=== PATIENT | male | born 1955 | race African-American/Black ===

== ENCOUNTER 2020-12-31 14:33 | Inpatient (IN) | payer OTHER ==
[2020-12-31 16:39] LABS: #Eosinphils 0.2 10x3/uL (0.0-0.5); #Monocytes 0.9 10x3/uL (0.0-1.1); #Neutrophils 6.5 10x3/uL (1.5-8.4); %Basophils 0.3 % (0.0-2.0); %Eosinophils 1.7 % (0.0-6.0); %Lymphocytes 10.7 % (18.0-47.0); %Monocytes 10.7 % (0.0-10.0); %Neutrophils 75.8 % (40.0-75.0); Hemoglobin 12.6 g/dL (13.5-17.5); Mean Corpuscular HGB CONC 31.3 g/dL (32.0-36.0); Mean Corpuscular Volume 79.8 fl (81.2-95.1); Mean Platelet Volume 10.5 fl (7.4-10.4); Platelet Count 182 10x3/uL (150-450); RBC Distribution Width 19.2 % (11.5-14.5); Red Blood Cell (RBC) Count 5.05 10x6/uL (4.32-5.72); White Blood Cell (WBC) Count 8.6 10x3/uL (3.5-10.5)
[2020-12-31 16:46] LABS: ALT (SGPT) 12 U/L (8-55); AST (SGOT) 20 U/L (5-34); Albumin 2.8 g/dL (3.4-4.8); Alkaline Phosphatase 79 U/L (40-110); Anion Gap 14 mmol/L (10-20); BUN (Urea Nitrogen) 32 mg/dL (8.4-25.7); Bilirubin, Total 2.9 mg/dL (0.2-1.2); CK (CPK) 55 U/L (30-200); Calc. Creatinine Clearance 0 mL/min (70-130); Calcium 8.7 mg/dL (7.8-10.44); Carbon Dioxide 21 mmol/L (23-31); Chloride 107 mmol/L (98-107); Globulin 3.4 g/dL (2.4-3.5); Glucose 110 mg/dL (80-115); Potassium 4.3 mmol/L (3.5-5.1); Protein, Total 6.2 g/dL (5.8-8.1); Sodium 138 mmol/L (136-145)
[2020-12-31 17:09] LABS: CKMB 2.2 ng/mL (0-6.6)
[2020-12-31 17:47] LABS: Bilirubin 3+ (Negative); Blood, Urine 10 (Negative); Clarity Clear (Clear); Glucose, Urine (Dipstick) Normal (Negative); Ketone, Urine 5 mg/dL (Negative); Leukocyte 25 (Negative); Nitrite Positive (Negative); Protein, Urine (Dipstick) 100 mg/dl (Neg-Trace); Specific Gravity, Urine 1.025 (1.002-1.036); Urobilinogen 12 mg/dL (Less than 2)
[2020-12-31 18:13] LABS: Bacteria/HPF 2+ HPF (None Seen); Mucous/LPF 4+ LPF (<2+); RBC/HPF 0-3 HPF (0-3); Squamous Epithelial 0-3 HPF (0-3)
[2020-12-31 18:14] LABS: Fatty Cast 0-3 LPF (None Seen); White Blood Cell Cast 0-3 LPF (None Seen)
[2020-12-31] MEDS ORDERED: cefTRIAXone\\ROCEPHIN 1 GM VIAL ONE (18:26)
[2020-12-31] MEDS ORDERED: Furosemide 40 MG/4 ML VIAL ONE (19:04)
[2020-12-31 19:05] LABS: Troponin I 0.067 ng/mL (< 0.028)
[2020-12-31] MEDS ORDERED: Guaifenesin DM 100-10/5 ML UDCUP PO PRN (20:10)
[2020-12-31] MEDS ORDERED: Ondansetron PF 4 MG/2 ML Vial IVP PRN (20:10)
[2020-12-31] MEDS ORDERED: Acetaminophen 325 MG TAB PO PRN (20:10)
[2020-12-31] MEDS ORDERED: Senokot S 8.6-50 MG TAB PO PRN (20:10)
[2020-12-31] MEDS ORDERED: Calcium Carbonate 500 MG ChewTAB PO PRN (20:10)
[2020-12-31 23:20] VITALS: BMI 19.5
[2020-12-31] MEDS ORDERED: Nitroglycerin 2% Ointment 1 INCH/1 GM Packet TOP SCH (23:30)
[2020-12-31] MEDS ORDERED: Famotidine 20 MG TAB PO SCH (23:45)
[2020-12-31] MEDS ORDERED: Metoprolol Tartrate 25 MG TAB PO SCH (23:45)
[2020-12-31] MEDS ORDERED: Tamsulosin HCl 0.4 MG CAP PO SCH (23:45)
[2021-01-01 04:22] LABS: Anion Gap 14 mmol/L (10-20); BUN (Urea Nitrogen) 29 mg/dL (8.4-25.7); Calc. Creatinine Clearance 74 mL/min (70-130); Calcium 8.6 mg/dL (7.8-10.44); Carbon Dioxide 23 mmol/L (23-31); Chloride 105 mmol/L (98-107); Cholesterol 99 mg/dl (< 200 Desired); Glucose 97 mg/dL (80-115); HDL Cholesterol 20 mg/dL (>60 Neg Risk); Iron 32 ug/dL (65-175); Iron Binding Capacity, Total 248 mcg/dL (261-462); LDL Cholesterol, Calculated 62 mg/dL; Magnesium 1.8 mg/dL (1.6-2.6); Potassium 3.6 mmol/L (3.5-5.1); Sodium 138 mmol/L (136-145); Triglycerides 83 mg/dL (Less than 150)
[2021-01-01 04:39] LABS: Ferritin 125.15 ng/mL (22-322); Thyroid Stimulating Hormone 2.9701 uIU/mL (0.35-4.94)
[2021-01-01 04:46] LABS: #Eosinphils 0.3 10x3/uL (0.0-0.5); #Monocytes 1.3 10x3/uL (0.0-1.1); #Neutrophils 7.9 10x3/uL (1.5-8.4); %Basophils 0.4 % (0.0-2.0); %Eosinophils 2.5 % (0.0-6.0); %Lymphocytes 9.6 % (18.0-47.0); %Monocytes 11.9 % (0.0-10.0); CKMB 1.8 ng/mL (0-6.6); Hemoglobin 13.2 g/dL (13.5-17.5); Mean Corpuscular HGB CONC 31.8 g/dL (32.0-36.0); Mean Corpuscular Hemoglobin 25.4 pg (27.0-33.0); Mean Corpuscular Volume 79.8 fl (81.2-95.1); Platelet Count 172 10x3/uL (150-450); RBC Distribution Width 18.7 % (11.5-14.5); White Blood Cell (WBC) Count 10.5 10x3/uL (3.5-10.5)
[2021-01-01] MEDS: Furosemide 40 MG/4 ML VIAL SLOW IVP SCH ×2 (05:29→14:57)
[2021-01-01] MEDS: Metoprolol Tartrate 25 MG TAB PO SCH ×2 (09:12→20:15)
[2021-01-01] MEDS: Enoxaparin Sodium 40 MG/0.4 ML SYRINGE SC SCH (09:12)
[2021-01-01] MEDS: Potassium Chloride 20 MEQ TAB PO SCH (09:12)
[2021-01-01] MEDS: cefTRIAXone\\ROCEPHIN 1 GM in Sodium Chloride 0.9% 100 ML IVPB SCH (09:12)
[2021-01-01] MEDS: Famotidine 20 MG TAB PO SCH ×2 (09:12→20:15)
[2021-01-01] MEDS: Aspirin 81 mg Enteric Coated Tablet PO SCH (09:13)
[2021-01-01] MEDS: Budesonide 0.5 MG/2 ML NEB NEB SCH ×2 (10:16→20:26)
[2021-01-01 15:40] LABS: SARS-CoV-2 PCR by NAA Not Detected (NotDetected)
[2021-01-01] MEDS ORDERED: Tamsulosin HCl 0.4 MG CAP PO SCH (21:00)
[2021-01-02 05:17] LABS: ALT (SGPT) 12 U/L (8-55); AST (SGOT) 22 U/L (5-34); Albumin 2.5 g/dL (3.4-4.8); Alkaline Phosphatase 78 U/L (40-110); Anion Gap 12 mmol/L (10-20); BUN (Urea Nitrogen) 22 mg/dL (8.4-25.7); Bilirubin, Total 2.6 mg/dL (0.2-1.2); Calc. Creatinine Clearance 78 mL/min (70-130); Calcium 8.1 mg/dL (7.8-10.44); Carbon Dioxide 25 mmol/L (23-31); Chloride 102 mmol/L (98-107); Globulin 3.2 g/dL (2.4-3.5); Glucose 84 mg/dL (80-115); Potassium 3.4 mmol/L (3.5-5.1); Protein, Total 5.7 g/dL (5.8-8.1); Sodium 136 mmol/L (136-145)
[2021-01-02] MEDS: Furosemide 40 MG/4 ML VIAL SLOW IVP SCH ×2 (05:37→13:46)
[2021-01-02 05:38] LABS: #Eosinphils 0.2 10x3/uL (0.0-0.5); #Monocytes 0.8 10x3/uL (0.0-1.1); #Neutrophils 5.7 10x3/uL (1.5-8.4); %Basophils 0.4 % (0.0-2.0); %Eosinophils 2.7 % (0.0-6.0); %Lymphocytes 10.1 % (18.0-47.0); %Monocytes 10.5 % (0.0-10.0); %Neutrophils 75.9 % (40.0-75.0); Hemoglobin 12.4 g/dL (13.5-17.5); Mean Corpuscular HGB CONC 32.2 g/dL (32.0-36.0); Mean Corpuscular Hemoglobin 25.5 pg (27.0-33.0); Mean Corpuscular Volume 79.1 fl (81.2-95.1); Mean Platelet Volume 10.7 fl (7.4-10.4); Platelet Count 170 10x3/uL (150-450); RBC Distribution Width 18.3 % (11.5-14.5); Red Blood Cell (RBC) Count 4.87 10x6/uL (4.32-5.72); White Blood Cell (WBC) Count 7.5 10x3/uL (3.5-10.5)
[2021-01-02] MEDS: Budesonide 0.5 MG/2 ML NEB NEB SCH (08:13)
[2021-01-02] MEDS: Enoxaparin Sodium 40 MG/0.4 ML SYRINGE SC SCH (09:28)
[2021-01-02] MEDS: Famotidine 20 MG TAB PO SCH (09:29)
[2021-01-02] MEDS: Aspirin 81 mg Enteric Coated Tablet PO SCH (09:29)
[2021-01-02] MEDS: cefTRIAXone\\ROCEPHIN 1 GM in Sodium Chloride 0.9% 100 ML IVPB SCH (09:29)
[2021-01-02] MEDS: Potassium Chloride 20 MEQ TAB PO SCH (09:29)
[2021-01-02] MEDS: Metoprolol Tartrate 25 MG TAB PO SCH (09:35)
[2021-01-02 12:48] VITALS: BP 129/80; TEMP 98.3
== END 2021-01-02 16:56 | disposition home or self-care (01) | DRG 291 ==
LOC: CSHERS 14:33 → CSHTELE 23:00
PROVIDERS: ADMIT Student in an Organized Health Care Education/Training Program; ATTEND Internal Medicine
DX: I11.0 Hypertensive heart disease with heart failure (principal); J96.01 Acute respiratory failure with hypoxia; I50.21 Acute systolic (congestive) heart failure; N39.0 Urinary tract infection, site not specified; N40.0 Benign prostatic hyperplasia without lower urinary tract symptoms; F20.9 Schizophrenia, unspecified; F41.9 Anxiety disorder, unspecified; J44.9 Chronic obstructive pulmonary disease, unspecified; E78.5 Hyperlipidemia, unspecified; D50.9 Iron deficiency anemia, unspecified; Z87.891 Personal history of nicotine dependence; M19.90 Unspecified osteoarthritis, unspecified site; Z20.822 Contact with and (suspected) exposure to COVID-19
CPT/HCPCS: 36415; 70450; 71045; 80048; 80053; 80061; 81003; 81015; 82550; 82553; 82728; 83540; 83550; 83735; 83880; 84443; 84484; 85025; 87635; 93005; 93306; 93970; 94640; 94760; 96374; 96375; J0696; J1650; J1940; J3490; J7626; U0003; U0005

== ENCOUNTER 2021-08-23 21:18 | Inpatient (IN) | payer MEDICARE, MEDICAID ==
[2021-08-23 22:18] LABS: #Eosinphils 0.1 10x3/uL (0.0-0.5); #Monocytes 0.7 10x3/uL (0.0-1.1); #Neutrophils 5.2 10x3/uL (1.5-8.4); %Basophils 0.3 % (0.0-2.0); %Eosinophils 1.6 % (0.0-6.0); %Lymphocytes 10.8 % (18.0-47.0); %Monocytes 10.5 % (0.0-10.0); %Neutrophils 76.2 % (40.0-75.0); Hemoglobin 11.9 g/dL (13.5-17.5); Mean Corpuscular HGB CONC 31.3 g/dL (32.0-36.0); Mean Corpuscular Hemoglobin 25.3 pg (27.0-33.0); Mean Corpuscular Volume 80.9 fl (81.2-95.1); Mean Platelet Volume 10.5 fl (7.4-10.4); Platelet Count 185 10x3/uL (150-450); RBC Distribution Width 19.6 % (11.5-14.5); White Blood Cell (WBC) Count 6.8 10x3/uL (3.5-10.5)
[2021-08-23 22:43] LABS: ALT (SGPT) 6 U/L (8-55); AST (SGOT) 19 U/L (5-34); Albumin 2.9 g/dL (3.4-4.8); Alkaline Phosphatase 83 U/L (40-110); Anion Gap 10 mmol/L (10-20); BUN (Urea Nitrogen) 20 mg/dL (8.4-25.7); Calc. Creatinine Clearance 0 mL/min (70-130); Calcium 8.3 mg/dL (7.8-10.44); Carbon Dioxide 28 mmol/L (23-31); Chloride 105 mmol/L (98-107); Globulin 3.5 g/dL (2.4-3.5); Glucose 125 mg/dL (80-115); Potassium 3.2 mmol/L (3.5-5.1); Protein, Total 6.4 g/dL (5.8-8.1); Sodium 140 mmol/L (136-145)
[2021-08-24] MEDS ORDERED: Acetaminophen 325 MG TAB PO PRN (00:48)
[2021-08-24] MEDS ORDERED: Senokot S 8.6-50 MG TAB PO PRN (00:48)
[2021-08-24] MEDS ORDERED: Guaifenesin DM 100-10/5 ML UDCUP PO PRN (00:48)
[2021-08-24] MEDS ORDERED: Calcium Carbonate 500 MG ChewTAB PO PRN (00:48)
[2021-08-24] MEDS ORDERED: Furosemide 40 MG/4 ML VIAL SLOW IVP SCH (01:00)
[2021-08-24] MEDS ORDERED: cefTRIAXone\\ROCEPHIN 1 GM in Sodium Chloride 0.9% 100 ML IVPB SCH (01:00)
[2021-08-24] MEDS ORDERED: Potassium Chloride 20 MEQ TAB PO SCH (01:00)
[2021-08-24] MEDS ORDERED: cefTRIAXone\\ROCEPHIN 1 GM VIAL ONE (01:17)
[2021-08-24] MEDS ORDERED: Furosemide 40 MG/4 ML VIAL ONE (01:17)
[2021-08-24] MEDS ORDERED: Potassium Chloride 20 MEQ TAB ONE (01:17)
[2021-08-24 03:18] VITALS: BMI 25.1
[2021-08-24 04:15] LABS: Bilirubin Neg (Negative); Blood, Urine Negative (Negative); Clarity Clear (Clear); Glucose, Urine (Dipstick) Normal (Negative); Ketone, Urine Negative (Negative); Leukocyte Negative (Negative); Nitrite Negative (Negative); Protein, Urine (Dipstick) Negative (Neg-Trace); pH, Urine 6.5 (5.0-9.0)
[2021-08-24 04:18] LABS: Anion Gap 14 mmol/L (10-20); BUN (Urea Nitrogen) 19 mg/dL (8.4-25.7); Calc. Creatinine Clearance 87 mL/min (70-130); Calcium 8.3 mg/dL (7.8-10.44); Carbon Dioxide 26 mmol/L (23-31); Chloride 106 mmol/L (98-107); Cholesterol 95 mg/dl (< 200 Desired); Glucose 117 mg/dL (80-115); HDL Cholesterol 19 mg/dL (>60 Neg Risk); LDL Cholesterol, Calculated 65 mg/dL; Potassium 4.5 mmol/L (3.5-5.1); Sodium 141 mmol/L (136-145); Triglycerides 53 mg/dL (Less than 150)
[2021-08-24 04:20] LABS: Magnesium 1.9 mg/dL (1.6-2.6)
[2021-08-24 04:29] LABS: Bacteria/HPF Rare-Few HPF (None Seen); RBC/HPF 0-3 HPF (0-3); Squamous Epithelial 0-3 HPF (0-3); WBC/HPF 0-3 HPF (0-3)
[2021-08-24] MEDS: Budesonide 0.5 MG/2 ML NEB NEB SCH ×2 (07:00→18:45)
[2021-08-24] MEDS: Aspirin 81 mg Enteric Coated Tablet PO SCH (10:42)
[2021-08-24] MEDS: Famotidine 20 MG TAB PO SCH ×2 (10:43→21:31)
[2021-08-24] MEDS: Furosemide 40 MG TAB PO SCH (10:43)
[2021-08-24] MEDS: Enoxaparin Sodium 40 MG/0.4 ML SYRINGE SC SCH ×2 (10:43→10:47)
[2021-08-24 19:49] LABS: SARS-CoV-2 PCR by NAA Not Detected (NotDetected)
[2021-08-24] MEDS ORDERED: Metoprolol Tartrate 25 MG TAB PO SCH (21:00)
[2021-08-24] MEDS: Rosuvastatin 20 MG TAB PO SCH (21:31)
[2021-08-24] MEDS: Metoprolol Tartrate 50 MG TAB PO SCH (21:31)
[2021-08-25] MEDS ORDERED: Haloperidol Lactate 5 MG/ML VIAL IM SCH (02:15)
[2021-08-25 07:25] LABS: Anion Gap 14 mmol/L (10-20); BUN (Urea Nitrogen) 18 mg/dL (8.4-25.7); Calc. Creatinine Clearance 92 mL/min (70-130); Calcium 8.6 mg/dL (7.8-10.44); Carbon Dioxide 26 mmol/L (23-31); Chloride 107 mmol/L (98-107); Glucose 90 mg/dL (80-115); Magnesium 1.9 mg/dL (1.6-2.6); Potassium 3.6 mmol/L (3.5-5.1); Sodium 143 mmol/L (136-145)
[2021-08-25] MEDS: Budesonide 0.5 MG/2 ML NEB NEB SCH ×2 (07:27→18:09)
[2021-08-25] MEDS ORDERED: FLU VACC QS2021-22(65YR UP)/PF 240 MCG/0.7 ML SYRINGE IM ONE (09:00)
[2021-08-25] MEDS: Metoprolol Tartrate 50 MG TAB PO SCH ×2 (09:15→20:42)
[2021-08-25] MEDS: Enoxaparin Sodium 40 MG/0.4 ML SYRINGE SC SCH (09:15)
[2021-08-25] MEDS: Famotidine 20 MG TAB PO SCH ×2 (09:15→20:42)
[2021-08-25] MEDS: Aspirin 81 mg Enteric Coated Tablet PO SCH (09:15)
[2021-08-25] MEDS: Furosemide 40 MG TAB PO SCH (09:15)
[2021-08-25] MEDS: Rosuvastatin 20 MG TAB PO SCH (20:42)
[2021-08-25 21:49] VITALS: BP 146/101; TEMP 97.2
== END 2021-08-25 22:50 | DRG 291 ==
LOC: CSHERS 21:18 → INTOOBSV 08-24 00:47 → CSHERHOLD 08-24 00:47 → UNDOADMIN 08-24 01:07 → CSHERHOLD 08-24 01:07 → CSHTELE 08-24 08:27 → CSHERHOLD 08-24 08:27 → OBSVTOIN 08-24 21:10
PROVIDERS: ADMIT Student in an Organized Health Care Education/Training Program; ATTEND Internal Medicine
DX: I11.0 Hypertensive heart disease with heart failure (principal); I50.21 Acute systolic (congestive) heart failure; N39.0 Urinary tract infection, site not specified; F20.9 Schizophrenia, unspecified; D50.9 Iron deficiency anemia, unspecified; Z79.899 Other long term (current) drug therapy; F41.9 Anxiety disorder, unspecified; J44.9 Chronic obstructive pulmonary disease, unspecified; Z20.822 Contact with and (suspected) exposure to COVID-19; M19.90 Unspecified osteoarthritis, unspecified site; N40.0 Benign prostatic hyperplasia without lower urinary tract symptoms; Z87.891 Personal history of nicotine dependence; E87.6 Hypokalemia; E78.5 Hyperlipidemia, unspecified
CPT/HCPCS: 0042T; 36415; 36416; 70450; 70496; 70498; 70551; 71045; 80048; 80053; 80061; 81001; 83735; 83880; 84443; 84484; 85025; 87086; 93005; 93306; 94760; 96374; 96375; G0378; J0696; J1630; J1650; J1940; J3490; U0003; U0005

== ENCOUNTER 2021-09-07 07:26 | Inpatient (IN) | payer MEDICARE, MEDICAID ==
[2021-09-07] MEDS ORDERED: Norepinephrine 8 MG/0.9% NS 250 ML ONE (07:40)
[2021-09-07 08:10] LABS: #Basophils 0.1 10x3/uL (0.0-0.2); #Eosinphils 0.1 10x3/uL (0.0-0.5); #Monocytes 0.4 10x3/uL (0.0-1.1); #Neutrophils 7.4 10x3/uL (1.5-8.4); %Basophils 0.6 % (0.0-2.0); %Eosinophils 0.8 % (0.0-6.0); %Lymphocytes 21.7 % (18.0-47.0); %Monocytes 3.5 % (0.0-10.0); Hemoglobin 12.4 g/dL (13.5-17.5); Mean Corpuscular HGB CONC 32.1 g/dL (32.0-36.0); Mean Corpuscular Hemoglobin 25.5 pg (27.0-33.0); Mean Corpuscular Volume 79.4 fl (81.2-95.1); RBC Distribution Width 20.8 % (11.5-14.5); Red Blood Cell (RBC) Count 4.86 10x6/uL (4.32-5.72); White Blood Cell (WBC) Count 10.9 10x3/uL (3.5-10.5)
[2021-09-07 08:12] LABS: Platelet Count 148 10x3/uL (150-450)
[2021-09-07 08:38] LABS: Bilirubin Neg (Negative); Blood, Urine 250 (Negative); Clarity Slightly Cloudy (Clear); Glucose, Urine (Dipstick) Normal (Negative); Ketone, Urine Negative (Negative); Leukocyte Negative (Negative); Nitrite Negative (Negative); Protein, Urine (Dipstick) 100 mg/dl (Neg-Trace)
[2021-09-07 08:43] LABS: ALT (SGPT) 34 U/L (8-55); AST (SGOT) 127 U/L (5-34); Albumin 2.3 g/dL (3.4-4.8); Alkaline Phosphatase 148 U/L (40-110); Anion Gap 17 mmol/L (10-20); BUN (Urea Nitrogen) 25 mg/dL (8.4-25.7); Bilirubin, Total 6.8 mg/dL (0.2-1.2); Calc. Creatinine Clearance 0 mL/min (70-130); Carbon Dioxide 29 mmol/L (23-31); Chloride 104 mmol/L (98-107); Globulin 2.9 g/dL (2.4-3.5); Protein, Total 5.2 g/dL (5.8-8.1); Sodium 147 mmol/L (136-145)
[2021-09-07 08:45] LABS: Actual Bicarbonate (HCO3a) 30.3 mEq/L (22-28); Base Excess (BEa) 2.1 mEq/L (-2.0 to +3.0); CO2 Tension 64.2 mmHg (35.0-45.0); Calcium, Ionized (arterial) 1.13 mmol/L (1.12-1.30); Carboxyhemoglobin (COHb) 2.7 gm% (0.0-3.0); Hemoglobin (Hb) 13.8 g/dL (14.0-18.0); O2 Tension (PaO2), arterial 65.1 mmHg (> 80.0); Potassium - ABG Lab 2.1 mmol/L (3.70-5.30); Puncture Site LBA; pH, Arterial 7.29 (7.35-7.45)
[2021-09-07 08:47] LABS: Bacteria/HPF Rare-Few HPF (None Seen); Squamous Epithelial 0-3 HPF (0-3)
[2021-09-07 08:49] LABS: SARS-CoV-2 NAA Rapid Test Not Detected (NotDetected)
[2021-09-07] MEDS ORDERED: Dexamethasone 10 MG/ML VIAL ONE (09:04)
[2021-09-07] MEDS ORDERED: Cefepime 2 GM VIAL ONE (09:05)
[2021-09-07 09:11] LABS: Glucose 14 mg/dL (80-115); Potassium 2.5 mmol/L (3.5-5.1)
[2021-09-07] MEDS ORDERED: Acetaminophen 325 MG Suppository PR PRN (09:37)
[2021-09-07] MEDS ORDERED: Electrolyte Replacement Protocol 1 EACH IVPB ONE (09:37)
[2021-09-07] MEDS ORDERED: Ventilator Sedation Protocol 1 EACH FS SCH (09:45)
[2021-09-07 09:56] LABS: Anion Gap 11 mmol/L (10-20); BUN (Urea Nitrogen) 24 mg/dL (8.4-25.7); Calc. Creatinine Clearance 51 mL/min (70-130); Carbon Dioxide 31 mmol/L (23-31); Chloride 105 mmol/L (98-107); Glucose 90 mg/dL (80-115); Sodium 144 mmol/L (136-145)
[2021-09-07] MEDS ORDERED: DISCONTINUE PREVIOUS NARCOTIC PAIN MEDICATIONS AND BENZODIAZEPINES FS SCH (10:00)
[2021-09-07] MEDS ORDERED: Propofol BOLUS 1,000 MG/100 ML VIAL IV PRN (10:00)
[2021-09-07] MEDS ORDERED: fentaNYL Citrate-0.9 % NaCl/PF 100 ML IVPB SCH (10:00)
[2021-09-07] MEDS ORDERED: Lorazepam 2 MG/ML VIAL SLOW IVP PRN (10:00)
[2021-09-07] MEDS ORDERED: Morphine 2 MG/ML VIAL SLOW IVP PRN (10:00)
[2021-09-07] MEDS ORDERED: Fentanyl BOLUS 250 ML IVPB PRN (10:00)
[2021-09-07 10:07] LABS: Potassium 2.9 mmol/L (3.5-5.1)
[2021-09-07 10:48] LABS: SARS-CoV-2 NAA Rapid Test Not Detected (NotDetected)
[2021-09-07] MEDS ORDERED: Vancomycin HCl 1 GM in Sodium Chloride 0.9% 250 ML 250 ML IVPB SCH (11:00)
[2021-09-07] MEDS ORDERED: Dextrose 5 %-0.45 % NaCl 1,000 ML IV SCH (12:15)
[2021-09-07] MEDS: Norepinephrine 8 MG/0.9% NS 250 ML IVPB PRN ×3 (12:30→23:34)
[2021-09-07 12:35] LABS: Lactic Acid 3.2 mmol/L (0.5-2.2)
[2021-09-07] MEDS: Potassium Chloride 40 MEQ in Premix Bag 1 BAG IVPB SCH ×2 (12:50→17:03)
[2021-09-07] MEDS ORDERED: Dextrose 50% Abboject 50 ML SYRINGE ONE (14:08)
[2021-09-07] MEDS ORDERED: Dextrose 50% Abboject 50 ML SYRINGE SLOW IVP PRN ×2 (14:23→14:24)
[2021-09-07] MEDS ORDERED: Dextrose 10% in Water 1,000 ML IV SCH (14:30)
[2021-09-07] MEDS ORDERED: FLU VACC QS2021-22(65YR UP)/PF 240 MCG/0.7 ML SYRINGE IM ONE (15:15)
[2021-09-07] MEDS: Propofol 1,000 MG/100 ML VIAL IV PRN (15:42)
[2021-09-07] MEDS ORDERED: Vancomycin 1 GM in Premix Bag 1 BAG IVPB SCH (21:00)
[2021-09-07] MEDS ORDERED: Famotidine/PF 20 mg/2ml Vial SLOW IVP SCH (21:00)
[2021-09-07 21:25] LABS: Anion Gap 14 mmol/L (10-20); BUN (Urea Nitrogen) 27 mg/dL (8.4-25.7); Calc. Creatinine Clearance 39 mL/min (70-130); Calcium 7.9 mg/dL (7.8-10.44); Carbon Dioxide 27 mmol/L (23-31); Chloride 105 mmol/L (98-107); Glucose 144 mg/dL (80-115); Magnesium 1.6 mg/dL (1.6-2.6); Potassium 4.1 mmol/L (3.5-5.1); Sodium 142 mmol/L (136-145)
[2021-09-07] MEDS: Cefepime 2 GM in Sodium Chloride 0.9% 100 ML IVPB SCH (21:57)
[2021-09-08] MEDS ORDERED: Pantoprazole 40 MG VIAL IVP SCH (02:30)
[2021-09-08] MEDS: Dextrose 10% in Water 1,000 ML IV SCH (02:51)
[2021-09-08 04:42] LABS: ALT (SGPT) 89 U/L (8-55); AST (SGOT) 353 U/L (5-34); Albumin 2.3 g/dL (3.4-4.8); Alkaline Phosphatase 142 U/L (40-110); Anion Gap 14 mmol/L (10-20); BUN (Urea Nitrogen) 30 mg/dL (8.4-25.7); Bilirubin, Total 9.1 mg/dL (0.2-1.2); Calc. Creatinine Clearance 34 mL/min (70-130); Calcium 7.7 mg/dL (7.8-10.44); Carbon Dioxide 27 mmol/L (23-31); Chloride 106 mmol/L (98-107); Glucose 214 mg/dL (80-115); Magnesium 1.6 mg/dL (1.6-2.6); Potassium 3.5 mmol/L (3.5-5.1); Protein, Total 5.3 g/dL (5.8-8.1); Sodium 143 mmol/L (136-145)
[2021-09-08 04:43] LABS: #Neutrophils 17.4 10x3/uL (1.5-8.4); %Basophils 0.1 % (0.0-2.0); %Monocytes 5.3 % (0.0-10.0); %Neutrophils 90.4 % (40.0-75.0); Hemoglobin 12.2 g/dL (13.5-17.5); Mean Corpuscular HGB CONC 32.9 g/dL (32.0-36.0); Platelet Count 170 10x3/uL (150-450); RBC Distribution Width 20.2 % (11.5-14.5); Red Blood Cell (RBC) Count 4.88 10x6/uL (4.32-5.72); White Blood Cell (WBC) Count 19.3 10x3/uL (3.5-10.5)
[2021-09-08 05:13] LABS: Fibrinogen 109 mg/dL (220-504); INR-International Normal Ratio 3.2; PTT 47.2 sec (22.0-33.0); Prothrombin Time 33.6 sec (9.5-12.1)
[2021-09-08 05:14] LABS: D-Dimer Test Greater than 35.20 mg/L FEU (0.19-0.50)
[2021-09-08] MEDS: Vancomycin HCl 750 MG in Sodium Chloride 0.9% 250 ML 250 ML IVPB SCH ×2 (05:44→23:30)
[2021-09-08] MEDS: Propofol 1,000 MG/100 ML VIAL IV PRN (05:44)
[2021-09-08 06:12] LABS: Platelet Count 170 10x3/uL (150-450)
[2021-09-08] MEDS ORDERED: Magnesium 2 GM/50 ML 2 GM in Premix Bag 1 BAG IVPB SCH (06:30)
[2021-09-08] MEDS ORDERED: Potassium Chloride 20 MEQ TAB PO SCH (06:30)
[2021-09-08] MEDS: Norepinephrine 8 MG/0.9% NS 250 ML IVPB PRN ×3 (06:46→22:24)
[2021-09-08] MEDS ORDERED: Enoxaparin Sodium 40 MG/0.4 ML SYRINGE SC SCH (09:00)
[2021-09-08] MEDS: Pantoprazole 40 MG VIAL IVP SCH ×2 (09:30→21:53)
[2021-09-08] MEDS: Cefepime 2 GM in Sodium Chloride 0.9% 100 ML IVPB SCH ×2 (09:43→21:53)
[2021-09-08] MEDS ORDERED: Midazolam HCl 5 mg/5 ml Vial SLOW IVP PRN (10:03)
[2021-09-08] MEDS ORDERED: Vecuronium 10 MG VIAL IVP PRN (10:04)
[2021-09-08 20:42] LABS: Vancomycin, Trough 15.9 ug/mL
[2021-09-08 20:49] LABS: D-Dimer Test 33.34 mg/L FEU (0.19-0.50); INR-International Normal Ratio 1.8; PTT 40.7 sec (22.0-33.0); Prothrombin Time 19.3 sec (9.5-12.1)
[2021-09-08] MEDS: Midazolam HCl 5 mg/5 ml Vial SLOW IVP PRN (22:10)
[2021-09-08] MEDS ORDERED: Morphine 4 MG/ML VIAL SLOW IVP PRN (22:40)
[2021-09-09] MEDS: Dextrose 10% in Water 1,000 ML IV SCH (01:11)
[2021-09-09 03:47] LABS: Hemoglobin 9.9 g/dL (13.5-17.5); Mean Corpuscular HGB CONC 32.7 g/dL (32.0-36.0); Mean Corpuscular Hemoglobin 24.7 pg (27.0-33.0); Mean Corpuscular Volume 75.6 fl (81.2-95.1); Mean Platelet Volume 9.3 fl (7.4-10.4); Platelet Count 156 10x3/uL (150-450); RBC Distribution Width 19.6 % (11.5-14.5); Red Blood Cell (RBC) Count 4.01 10x6/uL (4.32-5.72); White Blood Cell (WBC) Count 23.1 10x3/uL (3.5-10.5)
[2021-09-09 04:31] LABS: ALT (SGPT) 155 U/L (8-55); AST (SGOT) 637 U/L (5-34); Albumin 2.2 g/dL (3.4-4.8); Alkaline Phosphatase 142 U/L (40-110); Anion Gap 16 mmol/L (10-20); BUN (Urea Nitrogen) 45 mg/dL (8.4-25.7); Bilirubin, Total 12.6 mg/dL (0.2-1.2); Calc. Creatinine Clearance 31 mL/min (70-130); Calcium 7.6 mg/dL (7.8-10.44); Carbon Dioxide 22 mmol/L (23-31); Chloride 107 mmol/L (98-107); Glucose 158 mg/dL (80-115); Protein, Total 5.2 g/dL (5.8-8.1); Sodium 141 mmol/L (136-145)
[2021-09-09 04:47] LABS: MDiff Complete? YES; Manual Diff?? YES
[2021-09-09 04:54] LABS: Band 25 % (5-11); Lymphocytes 2 % (21-51); Monocytes 5 % (0-10); Neutrophil 68 % (42-75); Nucleated RBC 2 % (0)
[2021-09-09 04:56] LABS: Platelet Morphology Comment Appears Adequate
[2021-09-09 04:57] LABS: Anisocytosis SLIGHT = 6-15 cells (100X) (0-5/hpf); Crenated RBC MODERATE= 6-15 cells (100X) (None Seen); Hypochromia MODERATE=16-30 cells (100X) (0-5/hpf); Microcytosis SLIGHT = 6-15 cells (100X) (0-5/hpf); Schistocytes SLIGHT = 2-5 cells (100X) (0-1/hpf); Target Cells MODERATE= 6-15 cells (100X) (0-1/hpf); Tear Drops SLIGHT = 2-5 cells (100X) (0-1/hpf)
[2021-09-09] MEDS: Cefepime 2 GM in Sodium Chloride 0.9% 100 ML IVPB SCH ×2 (08:02→20:43)
[2021-09-09] MEDS: Pantoprazole 40 MG VIAL IVP SCH ×2 (08:03→20:43)
[2021-09-09] MEDS: Norepinephrine 8 MG/0.9% NS 250 ML IVPB PRN ×2 (08:05→21:48)
[2021-09-09] MEDS: Vancomycin HCl 750 MG in Sodium Chloride 0.9% 250 ML 250 ML IVPB SCH (16:58)
[2021-09-09] MEDS: Midazolam HCl 5 mg/5 ml Vial SLOW IVP PRN ×2 (16:59→21:47)
[2021-09-09] MEDS: Albumin 25% 25 GM/100 ML BOT IVPB SCH (19:59)
[2021-09-10 02:14] LABS: Creatinine, Urine 41.61 mg/dL (63-166)
[2021-09-10] MEDS: Albumin 25% 25 GM/100 ML BOT IVPB SCH ×3 (02:24→15:28)
[2021-09-10 04:09] LABS: Anion Gap 17 mmol/L (10-20); BUN (Urea Nitrogen) 73 mg/dL (8.4-25.7); Calc. Creatinine Clearance 22 mL/min (70-130); Calcium 7.8 mg/dL (7.8-10.44); Carbon Dioxide 21 mmol/L (23-31); Chloride 108 mmol/L (98-107); Glucose 99 mg/dL (80-115); Magnesium 1.9 mg/dL (1.6-2.6); Potassium 4.1 mmol/L (3.5-5.1); Sodium 142 mmol/L (136-145)
[2021-09-10 05:10] LABS: Hemoglobin 6.9 g/dL (13.5-17.5); Mean Corpuscular HGB CONC 33.5 g/dL (32.0-36.0); Mean Corpuscular Hemoglobin 25.5 pg (27.0-33.0); Platelet Count 94 10x3/uL (150-450); RBC Distribution Width 19.6 % (11.5-14.5); Red Blood Cell (RBC) Count 2.71 10x6/uL (4.32-5.72); White Blood Cell (WBC) Count 17.1 10x3/uL (3.5-10.5)
[2021-09-10 05:50] LABS: MDiff Complete? YES; Manual Diff?? YES
[2021-09-10 05:53] LABS: Band 17 % (5-11); Lymphocytes 6 % (21-51); Monocytes 3 % (0-10); Neutrophil 74 % (42-75); Nucleated RBC 1 % (0); Platelet Morphology Comment Appears Decreased
[2021-09-10 05:54] LABS: Hypochromia MODERATE=16-30 cells (100X) (0-5/hpf)
[2021-09-10 05:55] LABS: Anisocytosis MODERATE=16-30 cells (100X) (0-5/hpf); Basophilic Stippling SLIGHT = 1-2 cells (100X) (None Seen); Burr Cells SLIGHT = 2-5 cells (100X) (0-1/hpf); Macrocytosis SLIGHT = 6-15 cells (100X) (0-5/hpf); Microcytosis SLIGHT = 6-15 cells (100X) (0-5/hpf); Target Cells SLIGHT = 2-5 cells (100X) (0-1/hpf)
[2021-09-10 05:56] LABS: Crenated RBC SLIGHT = 1-5 cells (100X) (None Seen)
[2021-09-10 05:58] VITALS: BMI 26.0
[2021-09-10 07:35] LABS: Phosphorus 3.1 mg/dL (2.3-4.7)
[2021-09-10 07:37] LABS: Iron 82 ug/dL (65-175); Iron Binding Capacity, Total 155 mcg/dL (261-462)
[2021-09-10] MEDS: Pantoprazole 40 MG VIAL IVP SCH ×2 (08:50→22:13)
[2021-09-10 10:21] LABS: Vancomycin, Trough 28.3 ug/mL
[2021-09-10] MEDS ORDERED: Vancomycin 1 GM in Premix Bag 1 BAG IVPB SCH (10:30)
[2021-09-10] MEDS ORDERED: Lorazepam 2 MG/ML VIAL SLOW IVP PRN ×2 (15:14→16:00)
[2021-09-10] MEDS ORDERED: Morphine 4 MG/ML VIAL SLOW IVP SCH (15:30)
[2021-09-10] MEDS ORDERED: Atropine Sulfate 1% Ophth Soln 5 ml Bottle PO PRN (15:53)
[2021-09-10] MEDS ORDERED: Cefepime 1 GM in Sodium Chloride 0.9% 100 ML IVPB SCH (21:00)
[2021-09-11] MEDS: Pantoprazole 40 MG VIAL IVP SCH (09:21)
[2021-09-11 09:48] LABS: Vancomycin, Random 26.5 ug/mL (See Comment)
[2021-09-11 13:08] VITALS: BP 76/46; TEMP 99.1
== END 2021-09-11 14:30 | disposition expired | DRG 314 ==
LOC: CSHERS 07:26 → CSHIMCU 09:31 → CSHTELE 09-10 21:53
PROVIDERS: ADMIT Hospitalist; ATTEND Hospitalist
PROC: 3E033XZ Introduction of Vasopressor into Peripheral Vein, Percutaneous Approach (ICD-10-PCS; principal; 2021-09-07)
PROC: 0DH67UZ Insertion of Feeding Device into Stomach, Via Natural or Artificial Opening (ICD-10-PCS; 2021-09-07)
PROC: 5A12012 Performance of Cardiac Output, Single, Manual (ICD-10-PCS; 2021-09-07)
PROC: 5A1945Z Respiratory Ventilation, 24-96 Consecutive Hours (ICD-10-PCS; 2021-09-07)
DX: I42.9 Cardiomyopathy, unspecified (principal); J18.9 Pneumonia, unspecified organism; I50.43 Acute on chronic combined systolic (congestive) and diastolic (congestive) heart failure; Z66 Do not resuscitate; Z51.5 Encounter for palliative care; J96.01 Acute respiratory failure with hypoxia; N17.0 Acute kidney failure with tubular necrosis; A41.9 Sepsis, unspecified organism; R65.21 Severe sepsis with septic shock; K72.00 Acute and subacute hepatic failure without coma; D65 Disseminated intravascular coagulation [defibrination syndrome]; E87.2 Acidosis; J44.0 Chronic obstructive pulmonary disease with (acute) lower respiratory infection; G93.1 Anoxic brain damage, not elsewhere classified; D68.9 Coagulation defect, unspecified; I13.0 Hypertensive heart and chronic kidney disease with heart failure and stage 1 through stage 4 chronic kidney disease, or unspecified chronic kidney disease; J95.811 Postprocedural pneumothorax; D62 Acute posthemorrhagic anemia; R57.0 Cardiogenic shock; F25.9 Schizoaffective disorder, unspecified; Z20.822 Contact with and (suspected) exposure to COVID-19; F31.9 Bipolar disorder, unspecified; R57.1 Hypovolemic shock; N40.0 Benign prostatic hyperplasia without lower urinary tract symptoms; D63.1 Anemia in chronic kidney disease; E11.22 Type 2 diabetes mellitus with diabetic chronic kidney disease; N18.9 Chronic kidney disease, unspecified; I46.2 Cardiac arrest due to underlying cardiac condition; R91.8 Other nonspecific abnormal finding of lung field; E16.2 Hypoglycemia, unspecified; E11.649 Type 2 diabetes mellitus with hypoglycemia without coma; E87.6 Hypokalemia; R74.01 Elevation of levels of liver transaminase levels; Z79.82 Long term (current) use of aspirin; Z79.899 Other long term (current) drug therapy
CPT/HCPCS: 0240U; 36415; 36416; 36430; 36600; 71045; 76705; 80048; 80053; 80202; 81003; 81015; 82040; 82533; 82570; 82728; 82805; 83540; 83550; 83605; 83735; 84100; 84156; 84300; 84484; 84540; 85025; 85049; 85300; 85362; 85379; 85384; 85610; 85730; 86140; 86850; 86900; 86901; 87040; 87077; 87086; 87186; 93005; 94002; 94003; 94640; 94760; C9113; J0692; J1100; J1956; J2060; J2250; J2270; J2597; J2704; J3370; J3475; J3480; J3490; J7042; J7050; J7620; P9012; P9016; P9047; P9059; S0028; U0002